=== PATIENT | male | born 1980 | race Caucasian/White ===

== ENCOUNTER 2019-12-07 06:00 | Day surgery (SDC) | payer BC, SELFPAY ==
[~2019-12-07] VITALS: Ht 182.9 cm; Wt 74.8 kg
[2019-12-07] MEDS ORDERED: CEFAZOLIN SOD 2 GM in D5W 50 ML IV ONE (07:00)
[2019-12-07] MEDS ORDERED: ONDANSETRON HCL 4 MG/2 ML VIAL ONE (12:43)
[2019-12-07] MEDS ORDERED: DESFLURANE 15 MIN GAS INH ONE (12:43)
[2019-12-07] MEDS ORDERED: DEXAMETHASONE SOD PHOSPHATE 4 MG/ML VIAL ONE (12:43)
[2019-12-07] MEDS ORDERED: LIDOCAINE/EPI 1% 1:100000 20 ML VIAL INJ ONE (12:43)
[2019-12-07] MEDS ORDERED: HYDROmorphone 2 MG/ML VIAL ONE (12:43)
[2019-12-07] MEDS ORDERED: fentaNYL CITRATE/PF 100 MCG/2 ML AMP IVP ONE (12:43)
[2019-12-07] MEDS ORDERED: PROPOFOL 200MG/ 20ML VIAL (DIPRIVAN) IV ONE (12:43)
[2019-12-07] MEDS ORDERED: NS IRRIG SOLN 1000 ML IR ONE (12:43)
[2019-12-07] MEDS ORDERED: LR 1,000 ML IV.SOLN IV ONE (12:43)
[2019-12-07] MEDS ORDERED: ONDANSETRON HCL 4 MG/2 ML VIAL IVP PRN ×2 (12:45→13:00)
[2019-12-07] MEDS ORDERED: HYDROmorphone 1 MG INJ. 1 MG/ML AMPUL IVP PRN ×2 (12:45)
[2019-12-07] MEDS ORDERED: NALOXONE HCL 0.4 MG/ML AMP (NARCAN) IVP PRN ×3 (12:45→13:00)
[2019-12-07] MEDS ORDERED: ONDANSETRON 4 MG ODT TAB PO PRN (13:00)
[2019-12-07 13:45] VITALS: BP_SYST 153; BP_SYST 155
[2019-12-07] MEDS: HYDROcodone/ACETAMIN 5-325 MG TAB (NORCO/ VICODIN) PO PRN ×2 (14:04→18:47)
[2019-12-07] MEDS: KCL 20 mEq in D5/0.45NS 1000mL 1,000 ML IV SCH ×2 (15:49→21:51)
[2019-12-07 20:00] VITALS: BP_SYST 143
[2019-12-07] MEDS: CALCIUM 500 MG/TAB PO SCH (21:01)
[2019-12-07 22:46] LABS: ALBUMIN 3.8 g/dL (3.4-4.8); CALCIUM 8.7 mg/dL (8.4-11.0)
[2019-12-08] VITALS: BP_SYST 142
[2019-12-08] MEDS: HYDROcodone/ACETAMIN 5-325 MG TAB (NORCO/ VICODIN) PO PRN ×3 (00:26→14:07)
[2019-12-08] MEDS ORDERED: LEVOTHYROXINE SODIUM 0.125 MG TABLET PO SCH (07:00)
[2019-12-08 07:52] VITALS: BP_SYST 137
[2019-12-08 07:56] LABS: ALBUMIN 3.7 g/dL (3.4-4.8); CALCIUM 8.8 mg/dL (8.4-11.0)
[2019-12-08] MEDS: CALCIUM 500 MG/TAB PO SCH ×2 (08:40→16:11)
[2019-12-08] MEDS: KCL 20 mEq in D5/0.45NS 1000mL 1,000 ML IV SCH (10:30)
[2019-12-08 12:51] VITALS: BP_SYST 131
[2019-12-08] MEDS ORDERED: HYDR-4272 PO (15:40)
[2019-12-08] MEDS ORDERED: LEVO125T8 PO ×2 (15:41→15:42)
[2019-12-08] MEDS ORDERED: OSCD500 PO (15:43)
[2019-12-08 15:49] VITALS: BP_SYST 131
[2019-12-08 16:52] VITALS: BP_SYST 139
== END 2019-12-08 16:25 | disposition home or self-care (01) ==
LOC: UNDOADMIN 06:00 → SDS 06:00 → SMU 06:00 → EDSTATUS 09:00 → SMU 13:45 → UNDODISIN 12-08 16:25 → SDS 12-08 16:25
PROVIDERS: ATTEND Otolaryngology
DX: C73 Malignant neoplasm of thyroid gland (principal); Z90.89 Acquired absence of other organs; Z20.828 Contact with and (suspected) exposure to other viral communicable diseases
CPT/HCPCS: 36415 ×2; 60240; 82040 ×2; 82310 ×2; 87081; 88307; C1782; J0690; J1100; J1170; J2405; J2704; J3010; J7060; J7120; U0003; 83970